=== PATIENT | female | born 2000 | race African-American/Black ===

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

== ENCOUNTER 2019-05-08 02:17 | Emergency (ER) | payer OTHER | END 2019-05-08 02:38 | disposition home or self-care (01) | LOC: ERS 02:17 | DX: O99.89 Other specified diseases and conditions complicating pregnancy, childbirth and the puerperium (principal); R09.81 Nasal congestion; O99.512 Diseases of the respiratory system complicating pregnancy, second trimester; J45.909 Unspecified asthma, uncomplicated; Z3A.24 24 weeks gestation of pregnancy | CPT/HCPCS: 99283 ==

== ENCOUNTER 2019-06-30 12:04 | Day surgery (SDC) | payer OTHER ==
[2019-06-30 12:54] VITALS: BMI 28.0
[2019-06-30] MEDS ORDERED: hydrALAZINE 20 MG/ML VIAL SLOW IVP PRN (15:19)
--- NOTE | 2019-06-30 15:50 | PRG ---
DATE OF SERVICE: 06/30/2019 PRIMARY OBSTETRIC: Ms. Su Delvalle. CHIEF COMPLAINT: Decreased movement and vomiting x1. HISTORY OF PRESENT ILLNESS: The patient is a 18-year-old G1, P0 female with an intrauterine at 30 weeks and 2 days, presenting to Labor and Delivery after experiencing vomiting today x1 and not feeling her baby move. The patient has had a very uneventful thus far and having vomiting today was different and new and that in conjunction with not feeling her baby move, if she typically moves, she became concerned. When the patient arrived and was placed on the monitor, she reports she began feeling the baby move regularly again. The patient has no other complaints. She denies any fever, headache, chest pain, shortness of breath. She has had a cough, sneezing a lot. Reports intermittent constipation, isolated vomiting. Denies diarrhea. Denies any new rashes, hip problems, knee problems, muscle weakness. Denies urinary urgency or frequency. PAST MEDICAL HISTORY: Asthma. PAST SURGICAL HISTORY: Negative. ALLERGIES: NO KNOWN DRUG ALLERGIES. MEDICATIONS: vitamins. SOCIAL HISTORY: Denies drug, alcohol, or tobacco use. OBSTETRIC LABORATORY DATA: Unavailable at time of dictation. REVIEW OF SYSTEMS: Per HPI. PHYSICAL EXAMINATION: VITAL SIGNS: Blood pressure 123/79, heart rate of 94, saturating 100% on room air, temperature 98.2. GENERAL: She appears to be in no acute distress. She is alert, oriented, cooperative, and pleasant to interact with. HEAD: Normocephalic, atraumatic. LUNGS: Clear to auscultation bilaterally. HEART: Regular rate and rhythm. ABDOMEN: Gravid, soft, nontender. She does have a mild tenderness with deviation of the uterus to the patient's right with tenderness in the left fundal region. EXTREMITIES: Nontender, nonedematous. : Deferred. heart tracing shows a baseline in the 130s with moderate long-term variability, positive 15 x 15 accelerations on occasion. No decelerations. Tocometer is without any contractions. ASSESSMENT AND PLAN: The patient is a 18-year-old G1, P0 female with an intrauterine at 30 weeks and 2 days, here for decreased movement. The patient has been given reassurance as fetus has a category 1 tracing and periods of reactivity. The patient is being discharged home. She has followup with Ms. Blue on the , which we have encouraged that she keep this scheduled. Job ID: [id number]
== END 2019-06-30 15:15 | disposition home or self-care (01) ==
LOC: L&D/OP 12:04
PROVIDERS: ATTEND Advanced Practice Midwife
DX: O36.8130 Decreased fetal movements, third trimester, not applicable or unspecified (principal); O21.2 Late vomiting of pregnancy; Z3A.30 30 weeks gestation of pregnancy; Z91.018 Allergy to other foods

== ENCOUNTER 2019-09-03 03:42 | Inpatient (IN) | payer OTHER ==
[2019-09-03 04:25] VITALS: BMI 26.4
[2019-09-03] MEDS ORDERED: NS / Oxytocin 40 units/1000ml 1,000 ML IV PRN (04:43)
[2019-09-03] MEDS ORDERED: hydrALAZINE 20 MG/ML VIAL SLOW IVP PRN ×2 (04:43→11:42)
[2019-09-03] MEDS ORDERED: HYDROcodone/Acetaminophen 5/325 mg Tablet PO PRN ×4 (04:43→11:42)
[2019-09-03] MEDS ORDERED: Ibuprofen 800 MG TAB PO PRN (04:43)
[2019-09-03] MEDS ORDERED: Promethazine HCl 25 MG/ML VIAL IM PRN ×2 (04:43→06:19)
[2019-09-03] MEDS ORDERED: Ondansetron PF 4 MG/2 ML Vial IVP PRN ×3 (04:43→11:42)
[2019-09-03] MEDS ORDERED: Lidocaine 1% (PF) 30 ML VIAL SC PRN (04:43)
[2019-09-03] MEDS ORDERED: Methylergonovine 0.2 MG/ML VIAL IM PRN ×2 (04:43→11:42)
[2019-09-03] MEDS ORDERED: Lactated Ringer's 1,000 ML IV SCH (04:45)
[2019-09-03] MEDS ORDERED: NS w/ Oxytocin 10 units 500 ML IV SCH (04:45)
[2019-09-03] MEDS ORDERED: Penicillin G Potassium 5 MILL.UNITS in Sodium Chloride 0.9% 100 ML IVPB SCH (05:00)
[2019-09-03 05:24] LABS: Hemoglobin 11.8 g/dL (12.0-16.0); Mean Corpuscular HGB CONC 30.8 g/dL (32.0-36.0); Mean Corpuscular Hemoglobin 20.7 pg (25.0-35.0); Mean Corpuscular Volume 67.3 fL (78.0-98.0); Mean Platelet Volume 11.5 fL (7.4-10.4); Platelet Count 370 thou/uL (130-400); RBC Distribution Width 18.7 % (11.5-14.5); Red Blood Cell (RBC) Count 5.69 mill/uL (4.00-5.20); White Blood Cell (WBC) Count 13.1 thou/uL (4.8-10.8)
[2019-09-03] MEDS ORDERED: Fentanyl 4 mcg/Bup 0.1% Cadd 100 ML ONE (05:26)
[2019-09-03 06:05] LABS: Syphilis Antibody Nonreactive (Nonreactive); Syphilis Antibody Index 0.08 S/CO (<1.00 Non-Reactive)
[2019-09-03 06:06] LABS: HBSAg Index 0.16 S/CO (0-0.99); Hep B Surf Ag Non-Reactive S/CO (NonReactive)
[2019-09-03] MEDS ORDERED: Lactated Ringer's 500 ML IV PRN (06:19)
[2019-09-03] MEDS ORDERED: Naloxone HCl 0.4 mg/ml Vial IVP PRN ×2 (06:19)
[2019-09-03] MEDS ORDERED: ePHEDrine/0.9% NaCl/PF SYRINGE 50 mg/10 ml SLOW IVP PRN (06:19)
[2019-09-03] MEDS ORDERED: diphenhydrAMINE 50 MG/ML VIAL IVP PRN (06:19)
[2019-09-03] MEDS ORDERED: Acetaminophen 325 MG TAB PO PRN (06:19)
[2019-09-03] MEDS ORDERED: Fentanyl 4 mcg/Bupivacaine 0.1% Cassette 100 ML EPIDURAL SCH (06:30)
[2019-09-03] MEDS ORDERED: Communication Order-Pharmacy FS SCH (06:30)
--- NOTE | 2019-09-03 07:12 | PDOC.LDHP ---
Labor and Delivery H&P Chief complaint: contractions HPI: Patient started faustino at 0230. It got really painful really fast with contractions back to back. She arrived to the hospital at 0300 and when she went to the bathroom and wiped she noted green fluid, which she reported to the nurse. 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 Current medications: pre- vitamins, other (Flagyl) Previous surgical history: none Allergies/Adverse Reactions: Allergies Allergy/AdvReac Type Severity Reaction Status Date / Time apple Allergy Mild Rash Verified 06/30/19 12:55 Social history: none - Physical Exam Vital signs reviewed and normal: yes General: resting, breathing through contractions Lungs: nonlabored breathing Abdomen: gravid FHT: category 2 (Minimal variability upon arrival.) - Vaginal Exam cm dilated: 6 Effacement: 90% Station: 0 - OB Labs Blood type: A RH: positive Antibody Screen: negative HIV: negative RPR: negative HEPSAg: negative 1 hour GCT: negative GBS: positive Urine drug screen: negative Rubella: immune Additional Labs: Carrier screening neg SHANEL screening low risk +Trich on 02/05/19, 02/18/19, 03/08/19, 06/25/29, 07/21/19 - Assessment L&D Assessment: term patient in labor thick meconium Cat 2 strip - Plan Plan: admit to L&D, labor augmentation if indicated, GBS antibiotic prophylaxis
[2019-09-03] MEDS ORDERED: Penicillin G 2.5 MILL.units 2.5 MILL.UNITS in Premix Bag 1 BAG IVPB SCH (09:00)
[2019-09-03] MEDS ORDERED: NS / Oxytocin 40 units/1000ml 1,000 ML ONE (09:25)
[2019-09-03 09:44] LABS: Actual Bicarbonate (HCO3a) 19.2 mEq/L (22-28); Base Excess (BEa) -11.3 mEq/L (-2.0 to +3.0)
[2019-09-03 09:47] LABS: Actual Bicarbonate (HCO3v) 20 mEq/L (22-28); Base Excess -8.6 mEq/L (-2.0 to +3.0)
--- NOTE | 2019-09-03 09:56 | PDOC.OPDEL ---
OB Operative/Delivery Note Delivery Dr/Surgeon: Jarad Delvalle CNM Pre-Delivery Diagnosis: active labor Procedure/Post Delivery Dx: spontaneous vaginal delivery Weeks gestation: 39 (4 days) Anesthesia: epidural - Findings A Sex: male Weight: 4 lb 14 oz - 1 min: 8 - 5 min: 9 - Additional Findings/Plan Placenta delivered: spontaneous Repaired Obstetrical Laceration: 1st degree (and right labial) Estimated blood loss: 150mL Compilations/Other Findings: heart Declerations to the 60s with delivery imminent. josee team to room Cord gas collected. Post delivery plan: routine recovery
[2019-09-03] MEDS ORDERED: Benzocaine-Menthol 82.5 ML CAN TOP PRN (11:42)
[2019-09-03] MEDS ORDERED: Misoprostol 200 MCG TAB VAG PRN (11:42)
[2019-09-03] MEDS ORDERED: Milk Of Magnesia 30 ML UDCUP PO PRN (11:42)
[2019-09-03] MEDS ORDERED: Bisacodyl 10 MG SUPP PR PRN (11:42)
[2019-09-03] MEDS ORDERED: NS / Oxytocin 40 units/1000ml 1,000 ML IV SCH (11:42)
[2019-09-03] MEDS: Ibuprofen 800 MG TAB PO SCH ×2 (14:01→15:30)
[2019-09-03] MEDS ORDERED: Ibuprofen 100 MG/5 ML UDCUP PO SCH (14:45)
[2019-09-03] MEDS: Ferrous Sulfate 325 MG TAB PO SCH (15:10)
[2019-09-03] MEDS ORDERED: FLU VACC QS2019-20(6MOS UP)/PF 60 MCG/0.5 ML SYRINGE IM ONE (21:00)
[2019-09-03] MEDS ORDERED: Docusate Calcium (SURFAK) 240 MG CAP PO SCH (21:00)
[2019-09-03] MEDS: Ibuprofen 100 MG/5 ML UDCUP PO SCH (21:09)
--- NOTE | 2019-09-04 04:32 | PDOC.PP ---
Post Progress Note Post Day #: 1 Subjective: Patient doing well. No significant overnight events. Lochia minimal. PO intake tolerated: yes Flatus: yes Ambulation: yes Vital Signs (12 hours) Temp Pulse Resp BP Pulse Ox 09/04/19 00:59 98.6 F 66 109/74 09/03/19 19:33 98.3 F 83 16 125/74 99 09/03/19 17:13 98.8 F 87 16 136/62 98 Weight Weight 67.585 kg - Physical Examination General: NAD Cardiovascular: RRR Abdominal: + bowel sounds, lochia (minimal), no distention, appropriately TTP Fundus firm & at: umbilicus Skin: no rash Neurological: no gross focal deficits Psychiatric: A&Ox3, normal affect Result Diagrams: 09/03/19 05:12 Additional Labs: Post Labs Blood Type A POSITIVE 09/03/19 05:12 Hep Bs Antigen Non-Reactive S/CO (NonReactive) 09/03/19 05:12 (1) Term delivered Code(s): O80 - ENCOUNTER FOR FULL-TERM UNCOMPLICATED DELIVERY Status: Acute - Assessment/Plan Routine PP care - PP day #1 s/p - Rubella immune, Rh positive - GBS positive, received 1 dose Pen G - Lochia minimal Recurrent trichomonas infection during - Trichomonas negative on VP3 obtained on admission Bacterial vaginosis - Noted on VP3 during admission Dory vaginitis - Noted on VP3 during admission MEN1 Carrier Asthma - Albuterol inhaler PRN SGA - Uncertain if placenta sent for pathology Dispo: Stable. Plan for d/c home tomorrow.
[2019-09-04] MEDS: Ibuprofen 100 MG/5 ML UDCUP PO SCH ×3 (06:20→21:40)
[2019-09-04] MEDS ORDERED: Lanolin Ointment 7 GM TUBE TOP PRN (08:05)
[2019-09-04] MEDS: Ferrous Sulfate 325 MG TAB PO SCH ×2 (08:15→17:02)
[2019-09-04] MEDS: Prenatal Vitamin 1 TAB PO SCH (10:03)
[2019-09-04] MEDS: Docusate Sodium 100 MG/10 ML UDCUP PO SCH ×2 (10:03→17:05)
[2019-09-04] MEDS: Fluconazole 100 MG TAB PO SCH (10:03)
[2019-09-04] MEDS ORDERED: Adacel (T-DAP) 0.5 ML SYRINGE IM ONE (11:42)
[2019-09-05] MEDS: Ibuprofen 100 MG/5 ML UDCUP PO SCH ×2 (05:26→12:46)
[2019-09-05] MEDS: Ferrous Sulfate 325 MG TAB PO SCH (08:06)
[2019-09-05 08:12] VITALS: BP 116/65; TEMP 98.7
--- NOTE | 2019-09-05 08:57 | DIS ---
DATE OF ADMISSION: 09/03/2019 DATE OF DISCHARGE: 09/05/2019 ADMISSION DIAGNOSES: 1. Intrauterine at 39 weeks. 2. Active labor. DISCHARGE DIAGNOSES: 1. Intrauterine at 39 weeks. 2. Active labor. PROCEDURE: Term spontaneous vaginal delivery. HOSPITAL COURSE: The patient is a 18-year-old female, who presented with complaints of contractions and green leakage of fluids. The patient was diagnosed with active labor and rupture of membranes with meconium. She was admitted and managed expectantly, resulting in a term spontaneous vaginal delivery. Her hospital course has been uncomplicated. She is day 2. Today, she reports she is tolerating p.o., voiding on her own, having decreased lochia, and good pain control. PHYSICAL EXAMINATION: MOST RECENT VITAL SIGNS: Blood pressure is 116/71, temperature 98.5, pulse of 88, respiratory rate of 16, saturating 99% on room air. GENERAL: She appears to be in no acute distress. She is alert and oriented, cooperative, and pleasant to interact with. HEENT: Head is normocephalic and atraumatic. ABDOMEN: Fundus is firm. EXTREMITIES: Nontender and nonedematous. LABORATORY DATA: Her predelivery hemoglobin and hematocrit were 11.8 and 38.3, platelets 370,000. The patient is being discharged to home. She has instructions to follow up with Ms. Su Delvalle in 6 weeks or sooner if she experiences fever, increasing pain, or bleeding. She will be discharged home with ibuprofen oral solution 600 mg, to be taken p.o. every 6 hours, #20. Job ID: [id number]
[2019-09-05] MEDS: Prenatal Vitamin 1 TAB PO SCH (09:20)
[2019-09-05] MEDS: Fluconazole 100 MG TAB PO SCH (09:20)
[2019-09-05] MEDS: Docusate Sodium 100 MG/10 ML UDCUP PO SCH (09:20)
== END 2019-09-05 13:00 | disposition home or self-care (01) | DRG 806 ==
LOC: L&D/OP 03:42 → L&D 05:15 → 3SW 12:11
PROVIDERS: ADMIT Obstetrics & Gynecology; ATTEND Obstetrics & Gynecology
PROC: 10E0XZZ Delivery of Products of Conception, External Approach (ICD-10-PCS; principal; 2019-09-03)
DX: O77.0 Labor and delivery complicated by meconium in amniotic fluid (principal); O23.593 Infection of other part of genital tract in pregnancy, third trimester; Z37.0 Single live birth; Z3A.39 39 weeks gestation of pregnancy; O99.824 Streptococcus B carrier state complicating childbirth; J45.909 Unspecified asthma, uncomplicated; O99.52 Diseases of the respiratory system complicating childbirth; B37.3 Candidiasis of vulva and vagina; O70.0 First degree perineal laceration during delivery; O76 Abnormality in fetal heart rate and rhythm complicating labor and delivery
CPT/HCPCS: 36415; 51702; 82805; 85027; 86780; 86850; 86900; 86901; 87340; 87480; 87510; 87660; 88307; 99285; J2540; J3490

== ENCOUNTER 2020-11-08 10:13 | Emergency (ER) | payer OTHER ==
[2020-11-08] MEDS ORDERED: Ondansetron ODT 4 MG TAB ONE (12:19)
== END 2020-11-08 12:28 | disposition home or self-care (01) ==
LOC: ERS 10:13
DX: R19.7 Diarrhea, unspecified (principal); R11.0 Nausea; J45.909 Unspecified asthma, uncomplicated
CPT/HCPCS: 99283; Q0162

== ENCOUNTER 2020-12-29 21:30 | Emergency (ER) | payer OTHER | END 2020-12-29 22:42 | disposition left against medical advice (07) | LOC: ERS 21:30 | DX: Z53.21 Procedure and treatment not carried out due to patient leaving prior to being seen by health care provider (principal) ==

== ENCOUNTER 2021-04-23 11:31 | Emergency (ER) | payer OTHER ==
[2021-04-23] MEDS ORDERED: Ondansetron ODT 4 MG TAB ONE (12:14)
[2021-04-23] MEDS ORDERED: Acetaminophen/Codeine 30-300mg Tablet ONE ×2 (12:15→12:23)
[2021-04-23] MEDS ORDERED: Dexamethasone 4 MG TAB ONE (12:15)
[2021-04-23] MEDS ORDERED: Dexamethasone 4 mg/ml Vial ONE (12:19)
[2021-04-23 12:35] LABS: #Basophils 0.1 thou/uL (0.0-0.2); #Lymphocytes 1.2 thou/uL (1.20-3.40); #Monocytes 0.8 thou/uL (0.11-0.59); #Neutrophils 10.1 thou/uL (1.40-6.50); %Basophils 0.6 % (0.0-1.0); %Eosinophils 0.4 % (0.0-10.0); %Monocytes 6.8 % (0.0-10.0); %Neutrophils 82.3 % (42.0-75.0); Hemoglobin 14.2 g/dL (12.0-16.0); Mean Corpuscular HGB CONC 32.8 g/dL (32.0-36.0); Mean Corpuscular Hemoglobin 29.7 pg (27.0-31.0); Mean Corpuscular Volume 90.6 fL (78.0-98.0); Mean Platelet Volume 9.5 fL (7.4-10.4); Platelet Count 177 thou/uL (130-400); RBC Distribution Width 13.5 % (11.5-14.5); Red Blood Cell (RBC) Count 4.76 mill/uL (4.20-5.40); White Blood Cell (WBC) Count 12.3 thou/uL (4.8-10.8)
[2021-04-23 13:01] LABS: Albumin 3.6 g/dL (3.5-5.0); Calcium 11.2 mg/dL (7.8-10.44); Chloride 112 mmol/L (98-107); Globulin 2.7 g/dL (2.4-3.5); Glucose 116 mg/dL (70-105); Potassium 4.7 mmol/L (3.5-5.1); Protein, Total 6.3 g/dL (6.0-8.3); Sodium 140 mmol/L (136-145)
[2021-04-23 13:02] LABS: Carbon Dioxide 21 mmol/L (22-29)
[2021-04-23 13:03] LABS: Alkaline Phosphatase 117 U/L (40-110)
[2021-04-23 13:04] LABS: BUN (Urea Nitrogen) 7 mg/dL (7.0-18.7); Calc. Creatinine Clearance 0 mL/min (70-130)
[2021-04-23 13:06] LABS: ALT (SGPT) 19 U/L (8-55); AST (SGOT) 17 U/L (5-34)
[2021-04-23 13:12] LABS: Anion Gap 12 mmol/L (10-20)
== END 2021-04-23 13:20 | disposition home or self-care (01) ==
LOC: ERS 11:31
DX: D89.89 Other specified disorders involving the immune mechanism, not elsewhere classified (principal); F17.210 Nicotine dependence, cigarettes, uncomplicated
CPT/HCPCS: 36415; 80053; 85025; 85652; 86140; 99283; J1100; J8540; Q0162

== ENCOUNTER 2021-05-02 12:30 | Emergency (ER) | payer OTHER ==
[~2021-05-02 12:30] MED LIST: Iopamidol-370 76% 500 ML 1 ML ONE
[2021-05-02] MEDS ORDERED: Ketorolac Tromethamine 30 MG/ML VIAL ONE (14:00)
[2021-05-02] MEDS ORDERED: Morphine 4 MG/ML VIAL ONE ×2 (14:00→18:13)
[2021-05-02 14:19] LABS: #Eosinphils 0.2 thou/uL (0.0-0.7); #Lymphocytes 1.4 thou/uL (1.20-3.40); #Monocytes 1.4 thou/uL (0.11-0.59); #Neutrophils 13.5 thou/uL (1.40-6.50); %Basophils 0.1 % (0.0-1.0); %Eosinophils 1.3 % (0.0-10.0); %Lymphocytes 8.3 % (21.0-51.0); %Monocytes 8.5 % (0.0-10.0); %Neutrophils 81.8 % (42.0-75.0); Hemoglobin 13.7 g/dL (12.0-16.0); Mean Corpuscular HGB CONC 29.4 g/dL (32.0-36.0); Mean Corpuscular Hemoglobin 26.5 pg (27.0-31.0); Mean Corpuscular Volume 90.2 fL (78.0-98.0); Mean Platelet Volume 9.3 fL (7.4-10.4); Platelet Count 333 thou/uL (130-400); RBC Distribution Width 13.4 % (11.5-14.5); Red Blood Cell (RBC) Count 5.17 mill/uL (4.20-5.40); White Blood Cell (WBC) Count 16.5 thou/uL (4.8-10.8)
[2021-05-02 14:43] LABS: ALT (SGPT) 36 U/L (8-55); AST (SGOT) 21 U/L (5-34); Albumin 3.3 g/dL (3.5-5.0); Alkaline Phosphatase 103 U/L (40-110); Anion Gap 12 mmol/L (10-20); BUN (Urea Nitrogen) 10 mg/dL (7.0-18.7); Bilirubin, Total 0.5 mg/dL (0.2-1.2); CK (CPK) 28 U/L (29-168); Calc. Creatinine Clearance 0 mL/min (70-130); Calcium 10.8 mg/dL (7.8-10.44); Carbon Dioxide 21 mmol/L (22-29); Chloride 111 mmol/L (98-107); Globulin 3.3 g/dL (2.4-3.5); Glucose 88 mg/dL (70-105); Lipase 58 U/L (8-78); Magnesium 2.4 mg/dL (1.6-2.6); Potassium 4.3 mmol/L (3.5-5.1); Protein, Total 6.6 g/dL (6.0-8.3); Sodium 140 mmol/L (136-145)
[2021-05-02 16:05] LABS: Bilirubin Negative (Negative); Blood, Urine Negative (Negative); Clarity Clear (Clear); Glucose, Urine (Dipstick) 300 mg/dL (Negative); Ketone, Urine Negative (Negative); Leukocyte 75 Leu/uL (Negative); Nitrite Negative (Negative); Protein, Urine (Dipstick) 20 mg/dL (Neg-Trace); Specific Gravity, Urine 1.022 (1.002-1.036); Squamous Epithelial 0-3 HPF (0-3); Urobilinogen Normal mg/dL (Less than 2); WBC/HPF 21-50 HPF (0-3); pH, Urine 5.5 (5.0-9.0)
[2021-05-02 16:10] LABS: Pregnancy Test - Urine (BHCG) Negative (Negative); Pregu Control Background? CLEAR/WHITE (CLR/WHITE); Pregu Control Bar Appear? YES (CONTROL BAR); Specific Gravity 1.022 (1.002-1.036)
[2021-05-02 16:11] LABS: Bacteria/HPF 1+ HPF (None Seen)
== END 2021-05-02 20:20 | disposition home or self-care (01) ==
LOC: ERS 12:30
DX: G61.9 Inflammatory polyneuropathy, unspecified (principal); M06.4 Inflammatory polyarthropathy; D89.89 Other specified disorders involving the immune mechanism, not elsewhere classified; J45.909 Unspecified asthma, uncomplicated; F17.210 Nicotine dependence, cigarettes, uncomplicated; Z86.2 Personal history of diseases of the blood and blood-forming organs and certain disorders involving the immune mechanism
CPT/HCPCS: 70450; 70491; 71260; 80053; 81003; 81015; 81025; 82550; 83690; 83735; 85025; 85652; 86140; 96374; 96375; 96376; J1885; J2270; Q9967

== ENCOUNTER 2021-05-05 22:16 | Emergency (ER) | payer OTHER ==
[2021-05-05] MEDS ORDERED: CEFAZOLIN 1 GM VIAL ONE (22:24)
[2021-05-05] MEDS ORDERED: Boostrix 0.5 ML (Tdap) VIAL ONE (22:24)
[2021-05-05] MEDS ORDERED: Lidocaine 1% w/Epinephrine 1:100K 20 ML VIAL ONE (22:33)
[2021-05-05] MEDS ORDERED: Bacitracin 1 PK ONE ×2 (22:33→22:35)
[2021-05-05] MEDS ORDERED: Water For Inject, Bacteriostat 30 ML ONE (22:53)
== END 2021-05-05 23:30 | disposition home or self-care (01) ==
LOC: ERS 22:16
DX: S51.042A Puncture wound with foreign body of left elbow, initial encounter (principal); S51.822A Laceration with foreign body of left forearm, initial encounter; J45.909 Unspecified asthma, uncomplicated; F17.210 Nicotine dependence, cigarettes, uncomplicated; Z23 Encounter for immunization; W34.00XA Accidental discharge from unspecified firearms or gun, initial encounter; Z79.899 Other long term (current) drug therapy
CPT/HCPCS: 12001; 90471; 90715; 96372; 99285; G0390; J0690

== ENCOUNTER 2025-02-07 15:33 | Observation (INO) | payer OTHER ==
[2025-02-07 17:52] LABS: #Basophils 0.04 10x3/uL (0.0-0.2); #Eosinophils 0.04 10x3/uL (0.0-0.7); #Monocytes 0.75 10x3/uL (0.11-0.59); #Neutrophils 7.80 10x3/uL (1.40-6.50); %Basophils 0.4 % (0.0-1.0); %Eosinophils 0.4 % (0.0-10.0); %Lymphocytes 14.9 % (21.0-51.0); %Monocytes 7.3 % (0.0-10.0); %Neutrophils 75.6 % (42.0-75.0); Hematocrit 39.5 % (36.0-47.0); Hemoglobin 11.8 g/dL (12.0-16.0); Mean Corpuscular Hemoglobin 25.1 pg (27.0-31.0); Mean Corpuscular Volume 83.9 fL (78.0-98.0); Platelet Count 253 10x3/uL (130-400); Red Blood Cell (RBC) Count 4.71 mill/uL (4.20-5.40); White Blood Cell (WBC) Count 10.30 10x3/uL (4.8-10.8)
[2025-02-07 18:09] LABS: BHCG - Serum Negative (NEGATIVE); Pregs Control Background? CLEAR/WHITE (CLR/WHITE); Pregs Control Bar Appear? YES (CONTROL BAR)
[2025-02-07 18:16] LABS: Troponin I Less than 0.010 ng/mL (< 0.028)
[2025-02-07 18:37] LABS: ALT (SGPT) 29 U/L (Less than 34); AST (SGOT) 19 U/L (11-34); Albumin 3.7 g/dL (3.1-4.5); Alkaline Phosphatase 140 U/L (40-110); Anion Gap 11 mmol/L (10-20); BUN (Urea Nitrogen) 10 mg/dL (7.0-18.7); Bilirubin, Total 0.4 mg/dL (0.3-1.2); Calc. Creatinine Clearance 0 mL/min (70-130); Calcium 11.5 mg/dL (7.8-10.44); Carbon Dioxide 26 mmol/L (22-29); Chloride 104 mmol/L (98-107); Globulin 3.2 g/dL (2.4-3.5); Glucose 185 mg/dL (70-105); Magnesium 2.0 mg/dL (1.6-2.6); Potassium 2.6 mmol/L (3.5-5.1); Sodium 138 mmol/L (136-145)
[2025-02-07] MEDS ORDERED: Acetaminophen 500 MG TAB ONE (20:42)
[2025-02-07] MEDS ORDERED: NS 0.9% w/ 20 MEQ KCL 1,000 ML ONE (20:43)
[2025-02-07] MEDS ORDERED: Ondansetron PF 4 MG/2 ML Vial IVP PRN (23:42)
[2025-02-07] MEDS ORDERED: Acetaminophen 325 MG TAB PO PRN (23:42)
[2025-02-08 03:38] LABS: #Basophils 0.03 10x3/uL (0.0-0.2); #Eosinophils 0.05 10x3/uL (0.0-0.7); #Monocytes 0.81 10x3/uL (0.11-0.59); #Neutrophils 5.66 10x3/uL (1.40-6.50); %Basophils 0.4 % (0.0-1.0); %Eosinophils 0.6 % (0.0-10.0); %Lymphocytes 17.6 % (21.0-51.0); %Monocytes 10.1 % (0.0-10.0); %Neutrophils 70.4 % (42.0-75.0); Hematocrit 34.1 % (36.0-47.0); Hemoglobin 10.2 g/dL (12.0-16.0); Mean Corpuscular Hemoglobin 25.2 pg (27.0-31.0); Mean Corpuscular Volume 84.4 fL (78.0-98.0); Platelet Count 223 10x3/uL (130-400); Red Blood Cell (RBC) Count 4.04 mill/uL (4.20-5.40); White Blood Cell (WBC) Count 8.03 10x3/uL (4.8-10.8)
[2025-02-08 04:00] LABS: Anion Gap 9 mmol/L (10-20); BUN (Urea Nitrogen) 12 mg/dL (7.0-18.7); Calc. Creatinine Clearance 122 mL/min (70-130); Calcium 10.4 mg/dL (7.8-10.44); Carbon Dioxide 27 mmol/L (22-29); Chloride 109 mmol/L (98-107); Glucose 182 mg/dL (70-105); Magnesium 2.0 mg/dL (1.6-2.6); Potassium 2.9 mmol/L (3.5-5.1); Sodium 142 mmol/L (136-145)
[2025-02-08] MEDS: Potassium Chloride 20 MEQ in Premix 1 BAG IVPB SCH (04:39)
[2025-02-08] MEDS ORDERED: Albuterol 200 PUFF (6.7GM INHALER) INH PRN (07:56)
[2025-02-08] MEDS: Losartan 25 MG TAB PO SCH (08:42)
[2025-02-08] MEDS: Enoxaparin 40 MG (0.4 mL) SYRINGE SC SCH (08:42)
[2025-02-08] MEDS: Ergocalciferol 1.25 MG(50,000 UNITS) CAP PO SCH (08:42)
[2025-02-08] MEDS: metFORMIN 500 MG TAB PO SCH (08:42)
[2025-02-08] MEDS ORDERED: Metoprolol Succinate XL 50 MG ER.TAB PO SCH (09:00)
[2025-02-08] MEDS ORDERED: Non-Formulary Item 1 EACH (Losartan Potassium [Cozaar] 100 MG Tablet) PO SCH (09:00)
[2025-02-08 09:25] LABS: Anion Gap 11 mmol/L (10-20); BUN (Urea Nitrogen) 10 mg/dL (7.0-18.7); Calc. Creatinine Clearance 122 mL/min (70-130); Calcium 10.8 mg/dL (7.8-10.44); Carbon Dioxide 24 mmol/L (22-29); Chloride 110 mmol/L (98-107); Glucose 218 mg/dL (70-105); Potassium 3.5 mmol/L (3.5-5.1); Sodium 141 mmol/L (136-145)
[2025-02-08 11:19] VITALS: BP 183/121; TEMP 97.7
[2025-02-08] MEDS ORDERED: Carvedilol 6.25 MG TAB PO SCH (17:00)
[2025-02-08] MEDS ORDERED: Sertraline 25 MG TAB PO SCH (21:00)
== END 2025-02-08 13:09 | disposition home or self-care (01) ==
LOC: ERS 15:33 → 2SE 20:26
PROVIDERS: ADMIT Internal Medicine; ATTEND Hospitalist
DX: E87.6 Hypokalemia (principal); E83.52 Hypercalcemia; I10 Essential (primary) hypertension; F41.9 Anxiety disorder, unspecified; F32.A Depression, unspecified; N17.9 Acute kidney failure, unspecified; J45.909 Unspecified asthma, uncomplicated; F17.210 Nicotine dependence, cigarettes, uncomplicated; Z98.890 Other specified postprocedural states; Z91.018 Allergy to other foods; Z79.51 Long term (current) use of inhaled steroids; Z79.899 Other long term (current) drug therapy
CPT/HCPCS: 36415; 80048; 80053; 80061; 81001; 82306; 83036; 83735; 84439; 84443; 84484; 84703; 85025; 93005; 96365; 96372; 96376; G0378; J1650; J3480